=== PATIENT | female | born 1930 | race Caucasian/White ===

== ENCOUNTER 2017-01-02 12:07 | Emergency (ER) | payer OTHER ==
[~2017-01-02 12:07] MED LIST: ACETAMINOPHEN PO; ALBUTEROL17 GM INH; AMBIEN PO; ASPIRIN PO; ASPIRIN81 M1 PO; ASPIRIN81 M2 PO; B-COMPLEX1 TAB PO; CERTAGEN PO; CLARITIN10 MG PO; DEXILANT30 MG PO; EFFEXOR PO; EFFEXOR XR PO; EFFEXOR XR150 MG PO; ESTRACE PO; FEOSOL PO; FIBER GUMMIES2.5 GM PO; FIBER625 M1 PO; FISH OIL 1,0001 CA2 PO; FISH OIL 1,0001 CAP PO; FISH OIL500 MG PO; FLAGYL PO; FLEXERIL10 M1 PO; FOLIC ACID PO; IMDUR ER PO; IMMODIUM1 MG/5 M1 PO; INDOMETHACIN25 MG PO; LEVAQUIN PO; MEDROL DOSEPAK4 MG PO; MULTI-VITAMIN1 EAC1 PO; MULTIVITAMIN1 UDCAP PO; NEURONTIN PO; NEURONTIN600 MG PO; NITROGLYCERIN; PHARMACY; PLAVIX PO; PRILOSEC PO; PRILOSEC20 M1 PO; PRILOSEC20 MG PO; ROBITUSSIN-DM120 ML PO; SINGULAIR PO; SPIRIVA18 MCG INH; TAGAMET PO; TUSSIONEX PENN473 ML PO; VENLAFAXINE HC150 M1 PO; VITAMIN D-32000 UNI1 PO; VITAMIN D1000 UNI1 PO; WOMEN'S DAILY1 EACH PO; ZESTORETIC PO; ZETIA PO; ZOFRAN PO; [UNRECOGNIZED DRUG - OTHER] PO
[2017-01-02 13:20] LABS: BASOPHIL# 0.1 X10e3 (0-0.3); BASOPHIL% 0.7 % (0-2.5); EOSINOPHIL# 0.1 X10e3 (0-0.7); EOSINOPHIL% 1.1 % (0.0-7.0); HEMATOCRIT 38.1 % (35.0-45.0); HEMOGLOBIN 12.7 gm/dL (12.0-16.0); LYMPHOCYTE% 27.7 % (17.0-45.0); MEAN CELL VOLUME 89.1 FL (83-96); MEAN CORPUSCULAR HEMOGLOBIN 29.7 PG (28-34); MEAN CORPUSCULAR HGB CONC 33.4 g/dL (30-36); MEAN PLATELET VOLUME 7.3 FL (6.5-11.5); MONOCYTE# 0.5 X10e3 (0-1.0); MONOCYTE% 6.5 % (3.0-12.0); NEUTROPHIL# 4.7 X10e3 (1.5-7.1); PLATELET COUNT 237 X10e3 (140-420); RED BLOOD COUNT 4.27 X10e (3.90-5.30); RED CELL DISTRIBUTION WIDTH 13.8 % (11.0-15.5); WHITE BLOOD COUNT 7.4 X10e3 (4.0-10.5)
[2017-01-02 13:35] LABS: DIFF IND NO
[2017-01-02 13:45] LABS: ALBUMIN SERUM 4.1 g/dL (3.5-5.0); BILIRUBIN, DIRECT 0.1 mg/dL (0.0-0.2); BILIRUBIN,INDIRECT 0.7 mg/dL (0.0-0.9); BILIRUBIN,TOTAL 0.8 mg/dL (0.2-2.0); BUN/CREATININE RATIO 18.88; CREATININE SERUM 0.9 mg/dL (0.6-1.4); GLOM FILT RATE Estimated 58.3 mL/min (>60); POTASSIUM 3.7 mmol/L (3.5-5.1)
[2017-01-02 14:17] LABS: URINE SOURCE CLEAN CATCH
[2017-01-02 14:26] LABS: URINE APPEARANCE CLEAR; URINE BILIRUBIN NEG (NEG); URINE BLOOD TRACE (NEG); URINE COLOR YELLOW; URINE GLUCOSE NEG (NEG); URINE KETONE NEG (NEG); URINE LEUKOCYTE ESTERASE NEG (NEG); URINE NITRATE NEG (NEG); URINE PROTEIN NEG (NEG); URINE SPECIFIC GRAVITY 1.007 (1.003-1.035); URINE UROBILINOGEN 0.2 MG/DL (NEG)
[2017-01-02 14:29] LABS: URBCS1 AUWI 0-2 /[HPF] (0-2); URINE BACTERIA AUWI NEG (NEGATIVE); URINE SQUAMOUS EPITHELIAL CELL NONE SEEN /[HPF]; UWBCS1 AUWI 0-2 (0-5)
[2017-01-02 14:35] LABS: CULTURE INDICATED? NO
== END 2017-01-02 15:37 | disposition home or self-care (01) ==
LOC: CED 12:07
PROVIDERS: Emergency Medicine
DX: R10.11 Right upper quadrant pain (principal); R10.12 Left upper quadrant pain; R19.7 Diarrhea, unspecified; R11.0 Nausea; K57.92 Diverticulitis of intestine, part unspecified, without perforation or abscess without bleeding; K21.9 Gastro-esophageal reflux disease without esophagitis; I10 Essential (primary) hypertension; K58.9 Irritable bowel syndrome, unspecified; G62.9 Polyneuropathy, unspecified; M79.7 Fibromyalgia; Z90.49 Acquired absence of other specified parts of digestive tract; Z90.710 Acquired absence of both cervix and uterus
CPT/HCPCS: 36415; 80048; 80076; 81003; 82150; 83690; 85025; 96374; 99284; J1170; J2270; J2405

== ENCOUNTER 2017-01-03 03:36 | Inpatient (IN) | payer OTHER ==
--- NOTE | ~2017-01-03 | DS ---
Unit #: [id number] #: [id number] Patient: SMILEY ALEJANDRO [id number] [place], [place] [address] [id number] I MR#: [id number] NAME: SMILEY ALEJANDRO. ROOM: [facility] Age: 86 Sex: F Admission Date: 01/03/2017 : 1930 Discharge Date: 01/04/2017 Attending Physician: Rahul Martínez M.D. Primary Care Physician: Pj Kimball M.D. DISCHARGE SUMMARY PRINCIPAL DISCHARGE DIAGNOSES 1. Acute gastroenteritis. 2. History of transient ischemic attack. 3. Peripheral neuropathy. 4. Fibromyalgia syndrome. 5. Irritable bowel syndrome. 6. Osteoarthritis. 7. Gastroesophageal reflux disease. 8. Chronic kidney disease stage 3. 9. Status post appendectomy. 10. Status post cholecystectomy. 11. Status post hysterectomy. PROCEDURES None. CONSULTANTS Dr. Carcamo from [facility]. REASON FOR HOSPITALIZATION The patient is an 86-year-old white female with a history of hypertension in the past, chronic kidney disease, TIA, peripheral neuropathy, fibromyalgia syndrome, irritable bowel syndrome, osteoarthritis, GE reflux disease, prior appendectomy, cholecystectomy, hysterectomy. She was seen in the emergency room on 01/02/17 with nausea, vomiting and diarrhea after eating clams about three days previously at a local restaurant. At that time, she had normal vital signs, was afebrile. Blood work was normal and she was discharged home only to re-present the following day with worsening symptoms. At that time, she had repeat labs that were normal including a CT scan of the abdomen and pelvis that showed no active disease. She was afebrile. White count was normal. LFTs were normal and she was admitted. HOSPITAL COURSE She was started on IV fluids. She was made NPO except for ice chips, placed on IV proton pump inhibitors, Lovenox for DVT prophylaxis. The patient's diarrhea completely resolved. Her nausea and vomiting improved rapidly. Lactic acid was normal. CBC was again normal. Urinalysis within normal limits. BMP was normal except for GFR of 58. Magnesium was normal as well. Cardiac enzymes were normal. LFTs were normal. Lipase was normal. Amylase was slightly elevated at 63. Dr. Carcamo saw the patient and recommended a high fiber diet and stool softeners regularly. Continue proton pump inhibitor and the patient's diet was advanced. Unit #: [id number] #: [id number] Patient: SMILEY ALEJANDRO Apparently, she tolerated it well and was discharged home in my absence, to follow up with Dr. Kimball in one week. She was, again, discharged on: 1. MiraLAX 17 g daily. 2. A low residue diet. 3. Gabapentin 600 mg p.o. q. h.s. 4. Fiber 625 mg daily. 5. Zofran 4 mg p.o. q.4 hours p.r.n. 6. Multivitamins, one daily. 7. Prilosec, two tabs daily. 8. Venlafaxine 150 mg daily. Dictated by... Rahul Martínez M.D. YESSI/miek TD: 01/06/2017 07:53 JOB #: [id number] DISCHARGE SUMMARY Page 1 of 1 X Rahul Martínez MD X DISCHARGE SUMMARY
--- NOTE | ~2017-01-03 | HP ---
Unit #: [id number] #: [id number] Patient: SMILEY ALEJANDRO [id number] [address] [address] [id number] I MR#: [id number] NAME: SMILEY ALEJANDRO. ROOM: 19412 Age: 86 Sex: F Admission Date: 01/03/2017 : 1930 Attending Physician: Rahul Martínez M.D. Primary Care Physician: Pj Kimball M.D. HISTORY AND PHYSICAL HISTORY OF PRESENT ILLNESS 86-year-old white female with a history of hypertension, chronic kidney disease, TIA, peripheral neuropathy, fibromyalgia syndrome, irritable bowel syndrome, osteoarthritis, GE reflux disease, status post prior appendectomy, cholecystectomy and hysterectomy, seen yesterday with nausea, vomiting and diarrhea for about a three day period after eating clams at a local restaurant. She had a negative workup, was discharged home only to re-present to the emergency room today with worsening symptoms. Repeat labs were fairly unremarkable except for a slightly worsening GFR. CT scan of the abdomen and pelvis showed no active disease. White count was normal. She was afebrile and she was admitted for further evaluation. ALLERGIES She has stated allergies to multiple medications which she is very vague about. The only ones listed in the chart are iodine and Zocor. MEDICATIONS Medications prior to admission: 1. Venlafaxine 150 mg daily. 2. Neurontin 600 mg q. h.s. 3. Multivitamins, one daily. 4. Fiber daily. 5. Prilosec two tabs daily. 6. Zofran 4 mg p.o. q.4 hours p.r.n. PAST SURGICAL HISTORY 1. Cholecystectomy. 2. Hysterectomy. 3. Appendectomy. 4. Breast cyst. 5. Rib resection. 6. Bone spur resection. PAST MEDICAL HISTORY 1. Diverticulosis. 2. Generalized anxiety disorder. 3. Heart murmur. 4. Chronic bronchitis. 5. Irritable bowel syndrome. 6. Fibromyalgia syndrome. 7. Peripheral neuropathy. 8. Osteoarthritis. 9. GE reflux disease. Unit #: [id number] #: [id number] Patient: SMILEY ALEJANDRO 10. History of hypertension. 11. TIA. 12. Chronic kidney disease stage 2. SOCIAL HISTORY Nonsmoker, nondrinker. No street drug use. FAMILY HISTORY Noncontributory. PHYSICAL EXAMINATION VITAL SIGNS: Afebrile. Pulse 82, respirations 16, blood pressure was normal but the last time it was checked it was 160/116. Her O2 sats have been fine. The last one documented in the chart was 89%. Currently she is on 2 L at 96%. HEENT: Unremarkable except for dry mucous membranes. NECK: Supple without JVD, bruits, adenopathy or thyromegaly. CHEST: Clear to auscultation. HEART: Regular rate and rhythm without any S3 gallop. She does have a soft systolic murmur best heard at the apex. ABDOMEN: Large, soft, nondistended, nontender with positive bowel sounds and no hepatosplenomegaly. EXTREMITIES: No clubbing, cyanosis or edema. /RECTAL: Deferred. NEUROLOGICAL: Grossly intact. DIAGNOSTIC STUDIES LABORATORY: CBC normal. Cardiac enzymes normal. Urinalysis normal. Lactic acid normal. Lipase normal. CMP normal except for random blood sugar of 119 and GFR of 45.8, calcium at 10.4. IMAGING: CT scan of the abdomen and pelvis reportedly shows no active disease although there is no official report. IMPRESSION 1. Recurrent episodes of nausea, vomiting and diarrhea with unclear etiology. 2. Gastroesophageal reflux disease. 3. Chronic kidney disease. 4. Peripheral neuropathy. 5. History of transient ischemic attack. 6. History of hypertension. 7. Fibromyalgia syndrome. 8. Status post appendectomy. 9. Status post hysterectomy. 10. Status post cholecystectomy. PLAN NPO except for ice chips, IV fluids, IV Zofran, IV proton pump inhibitors. Lovenox for DVT prophylaxis. Observe over the next 24 hours. If no improvement, consult GI for endoscopy. Otherwise, advance as tolerated. Unit #: [id number] #: [id number] Patient: SMILEY ALEJANDRO Dictated by Nathaniel Sewell/mike TD: 01/03/2017 09:48 JOB #: [id number] HISTORY AND PHYSICAL Page 1 of 1 X Rahul Martínez MD X HISTORY AND PHYSICAL
--- NOTE | ~2017-01-03 | CO ---
Unit #: [id number] #: [id number] Patient: SMILEY ALEJANDRO [id number] [facility]. [place], [place] [address] [id number] I MR#: [id number] NAME: SMILEY ALEJANDRO. ROOM: [facility] Age: 86 Sex: F Admission Date: 01/03/2017 : 1930 Attending Physician: Rahul Martínez M.D. Primary Care Physician: Pj Kimball M.D. Consultation Date: 01/04/2017 CONSULTATION REPORT PRIMARY CARE PHYSICIAN Dr. Pj Kimball. REASON FOR CONSULTATION Abdominal pain. HISTORY OF PRESENTING ILLNESS Ms. Mariscal is an 86-year-old lady with multiple medical problems. She has been having lower abdominal pain for 3 days. It was associated with some nausea, vomiting, and also had a loose stools. No blood in the stool. No fever. No chills. No new medications. Of note, the patient says she had a bowel movement this morning and her pain has nearly resolved. ALLERGIES Multiple medications, list reviewed. MEDICATIONS Medications at home included venlafaxine, Neurontin, multivitamin, Prilosec, and Zofran. PAST MEDICAL HISTORY Significant for GERD; esophageal ring; colonoscopy with Dr. Villa 3 years ago, negative apparently; history of diverticulosis; history of fibromyalgia. SOCIAL HISTORY Nonsmoker. Nonalcoholic. Lives with family. FAMILY HISTORY Noncontributory. REVIEW OF SYSTEMS Negative other than as mentioned above. PHYSICAL EXAMINATION VITAL SIGNS: Stable. Afebrile. GENERAL: No acute distress. HEENT: Pupils are equal and reactive. Sclerae anicteric. Oral mucosa moist. NECK: No JVD. No lymphadenopathy. CHEST: Clear to auscultation bilaterally. CARDIOVASCULAR: Regular rate and rhythm. No murmurs. Unit #: [id number] #: [id number] Patient: SMILEY ALEJANDRO ABDOMEN: Soft, nontender, and nondistended. EXTREMITIES: Without clubbing, cyanosis, or edema. NEUROLOGIC: Intact. SKIN: Warm and dry. DIAGNOSTIC STUDIES LABORATORY RESULTS: Chemistries are unremarkable. Normal lipase. Normal LFTs. Normal renal function. CBC completely normal. IMAGING STUDIES: CT scan shows no acute disease. ASSESSMENT AND PLAN The patient presented with acute nausea, vomiting, abdominal pain. Symptoms have resolved. It could be related to intestinal colic, possibly related to diet and constipation. I will recommend high-fiber diet and stool softeners regularly. Continue PPI therapy, long-term. 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 The patient is wanting to go home. If she can tolerate food, I will okay with discharge with recommendation to return for any recurrent symptoms. Thank you, Dr. Martínez, for this interesting consult. We will follow along. Dictated by... Nathaniel Long/elliot TD: 01/04/2017 14:06 JOB #: [id number] CONSULTATION REPORT Page 1 of 1 X Maciel Carcamo MD X CONSULTATION REPORT
--- NOTE | ~2017-01-03 | CT4 ---
[facility] A Service of [facility] RADIOLOGY TEXT RESULTS PATIENT: SMILEY ALEJANDRO LOCATION: C4B 460-01 : [birth year] UNIT #: [id number] AGE: [address]: Rahul Martínez MD SEX: F ORDER DR: [id number] [facility] [address] [place], [place] [address] [id number] I MR#: [id number] Acc #: [id number] NAME: SMILEY ALEJANDRO. : 1930 SEX: F STUDY DATE/TIME: 01/03/2017 05:13 UNIT: C4B ROOM: [facility] STUDY DESCRIPTION: CT Abd and Pelv Wo Cont Attending Physician: Rahul Martínez M.D. Ordering Physician: Chivo Rico D.O. Primary Care Physician: Pj Kimball M.D. MEDICAL IMAGING REPORT This report is preliminary unless electronic signature is present EXAM CT abdomen and pelvis 01/03/2017 0513 hours INDICATION Nausea, vomiting and diarrhea with generalized abdominal pain that started today. TECHNIQUE Axial images were obtained through the abdomen and pelvis without contrast. Multiplanar reformats were obtained. Comparison made 11/18/2015. This CT examination was performed with one or more of the following radiation dose reduction techniques: automatic exposure control, adjustment of mA and/or kV according to patient size, and iterative reconstruction. FINDINGS ABDOMEN: Lung bases are clear. Aortic valvular calcifications may indicate aortic stenosis. Gallbladder surgically absent. Redemonstrated is a large left upper pole renal cyst. It does not appear significantly changed. No renal or ureteral stones are seen. There is no hydronephrosis. The unenhanced solid organs are otherwise normal. There is atherosclerotic disease, but there is no aortic aneurysm. There is no free fluid or definitive adenopathy. The unopacified GI tract is grossly normal. PELVIS: Urinary bladder is normal. There are no lower ureteral stones. The uterus is surgically absent. There is diffuse sigmoid diverticulosis and descending colon diverticulosis. No definitive evidence of diverticulitis. There is no free fluid. Again noted are bilateral L5 pars defects with grade 1 spondylolisthesis of L5 on S1. IMPRESSION 1. No clearly acute findings in the abdomen or pelvis. [facility] A Service of [facility] RADIOLOGY TEXT RESULTS PATIENT: SMILEY ALEJANDRO LOCATION: [facility] 460-01 : 31 UNIT #: [id number] AGE: [address]: Rahul Martínez MD SEX: F ORDER DR: 2. There is colonic diverticulosis, predominantly in the sigmoid. No definitive evidence for acute diverticulitis however. No bowel obstruction. 3. Cholecystectomy and hysterectomy. 4. Stable large left renal cyst. 5. Calcifications in the aortic valve could indicate aortic stenosis. Dictated by... Pj Muro Jr., M.D. THIS IS AN ELECTRONICALLY VERIFIED REPORT Pj Muro Jr., M.D. at 01/03/2017 9:14 PM VIKTOR/aaliyah TD: 01/03/2017 13:22 JOB #: [id number] MEDICAL IMAGING REPORT Page 1 of 1 COPY
[2017-01-03 06:26] LABS: POC - TROPONIN <0.05 ng/mL (<=0.05)
[2017-01-03 06:28] LABS: BASOPHIL% 0.4 % (0-2.5); EOSINOPHIL% 0.5 % (0.0-7.0); HEMATOCRIT 37.1 % (35.0-45.0); HEMOGLOBIN 12.4 gm/dL (12.0-16.0); LYMPHOCYTE# 2.1 X10e3 (1.0-3.5); LYMPHOCYTE% 29.2 % (17.0-45.0); MEAN CELL VOLUME 89.6 FL (83-96); MEAN CORPUSCULAR HEMOGLOBIN 29.9 PG (28-34); MEAN CORPUSCULAR HGB CONC 33.4 g/dL (30-36); MEAN PLATELET VOLUME 7.5 FL (6.5-11.5); MONOCYTE# 0.4 X10e3 (0-1.0); MONOCYTE% 6.1 % (3.0-12.0); NEUTROPHIL# 4.7 X10e3 (1.5-7.1); NEUTROPHIL% 63.8 % (40-75); PLATELET COUNT 233 X10e3 (140-420); RED BLOOD COUNT 4.15 X10e (3.90-5.30); RED CELL DISTRIBUTION WIDTH 14.2 % (11.0-15.5); WHITE BLOOD COUNT 7.3 X10e3 (4.0-10.5)
[2017-01-03 06:29] LABS: DIFF IND NO
[2017-01-03 06:59] LABS: ALBUMIN SERUM 4.1 g/dL (3.5-5.0); BILIRUBIN, DIRECT 0.1 mg/dL (0.0-0.2); BILIRUBIN,INDIRECT 0.8 mg/dL (0.0-0.9); BILIRUBIN,TOTAL 0.9 mg/dL (0.2-2.0); BUN/CREATININE RATIO 12.72; CALCIUM SERUM 10.4 mg/dL (8.4-10.2); CREATININE SERUM 1.1 mg/dL (0.6-1.4); GLOM FILT RATE Estimated 45.8 mL/min (>60); POTASSIUM 3.6 mmol/L (3.5-5.1); PROTEIN TOTAL SERUM 7.8 g/dL (6.0-8.3)
[2017-01-03 10:28] LABS: URINE SOURCE CLEAN CATCH
[2017-01-03 11:06] LABS: URBCS1 AUWI 0-2 /[HPF] (0-2); URINE APPEARANCE CLEAR; URINE BACTERIA AUWI NEG (NEGATIVE); URINE BILIRUBIN NEG (NEG); URINE BLOOD NEG (NEG); URINE COLOR YELLOW; URINE GLUCOSE NEG (NEG); URINE KETONE NEG (NEG); URINE LEUKOCYTE ESTERASE TRACE (NEG); URINE NITRATE NEG (NEG); URINE PH 6.5 (5-8); URINE PROTEIN TRACE (NEG); URINE SPECIFIC GRAVITY 1.013 (1.003-1.035); URINE SQUAMOUS EPITHELIAL CELL NONE SEEN /[HPF]; URINE UROBILINOGEN 0.2 MG/DL (NEG)
[2017-01-03 11:08] LABS: CULTURE INDICATED? NO
[2017-01-04 10:09] LABS: HEMATOCRIT 37.3 % (35.0-45.0); HEMOGLOBIN 12.3 gm/dL (12.0-16.0); MEAN CELL VOLUME 90.6 FL (83-96); MEAN CORPUSCULAR HEMOGLOBIN 29.8 PG (28-34); MEAN CORPUSCULAR HGB CONC 32.8 g/dL (30-36); MEAN PLATELET VOLUME 7.6 FL (6.5-11.5); RED BLOOD COUNT 4.12 X10e (3.90-5.30); RED CELL DISTRIBUTION WIDTH 13.9 % (11.0-15.5); WHITE BLOOD COUNT 8.3 X10e3 (4.0-10.5)
[2017-01-04 10:34] LABS: BUN/CREATININE RATIO 8.88; CALCIUM SERUM 9.4 mg/dL (8.4-10.2); CREATININE SERUM 0.9 mg/dL (0.6-1.4); GLOM FILT RATE Estimated 58.3 mL/min (>60); MAGNESIUM 1.7 mg/dL (1.6-3.0); POTASSIUM 3.6 mmol/L (3.5-5.1)
[2017-01-04] MEDS ORDERED: MIRALAX17 GM PO (18:30)
== END 2017-01-04 18:50 | disposition home or self-care (01) | DRG 392 ==
LOC: CED 03:36 → CEDOF 07:50 → CED 08:27 → CEDOF 08:27 → C4B 11:50 → CEDOF 11:50 → C4B 01-04 18:50
PROVIDERS: Emergency Medicine; Internal Medicine; Student in an Organized Health Care Education/Training Program
DX: K52.9 Noninfective gastroenteritis and colitis, unspecified (principal); G62.9 Polyneuropathy, unspecified; N18.3 Chronic kidney disease, stage 3 (moderate); Z86.73 Personal history of transient ischemic attack (TIA), and cerebral infarction without residual deficits; M79.7 Fibromyalgia; M19.90 Unspecified osteoarthritis, unspecified site; K21.9 Gastro-esophageal reflux disease without esophagitis; I12.9 Hypertensive chronic kidney disease with stage 1 through stage 4 chronic kidney disease, or unspecified chronic kidney disease; F41.9 Anxiety disorder, unspecified; Z90.49 Acquired absence of other specified parts of digestive tract; Z90.710 Acquired absence of both cervix and uterus
CPT/HCPCS: 36415; 74176; 80048; 80076; 81003; 82553; 83605; 83690; 83735; 84484; 85025; 85027; 96361; 96374; 96375; 99285; C9113; J1170; J1650; J2405; J2550

== ENCOUNTER 2017-01-05 10:54 | Emergency (ER) | payer OTHER ==
[~2017-01-05 10:54] MED LIST changes: +MIRALAX17 GM PO
[2017-01-05 11:26] LABS: BASOPHIL# 0.1 X10e3 (0-0.3); BASOPHIL% 0.7 % (0-2.5); DIFF IND NO; EOSINOPHIL% 0.4 % (0.0-7.0); HEMATOCRIT 39.1 % (35.0-45.0); HEMOGLOBIN 13.2 gm/dL (12.0-16.0); LYMPHOCYTE# 2.2 X10e3 (1.0-3.5); LYMPHOCYTE% 23.8 % (17.0-45.0); MEAN CELL VOLUME 88.7 FL (83-96); MEAN CORPUSCULAR HEMOGLOBIN 29.9 PG (28-34); MEAN CORPUSCULAR HGB CONC 33.7 g/dL (30-36); MONOCYTE% 10.5 % (3.0-12.0); NEUTROPHIL% 64.6 % (40-75); PLATELET COUNT 231 X10e3 (140-420); RED CELL DISTRIBUTION WIDTH 13.8 % (11.0-15.5); WHITE BLOOD COUNT 9.3 X10e3 (4.0-10.5)
[2017-01-05 12:05] LABS: ALBUMIN SERUM 4.2 g/dL (3.5-5.0); BILIRUBIN, DIRECT 0.1 mg/dL (0.0-0.2); BILIRUBIN,INDIRECT 0.5 mg/dL (0.0-0.9); BILIRUBIN,TOTAL 0.6 mg/dL (0.2-2.0); CALCIUM SERUM 10.2 mg/dL (8.4-10.2); GLOM FILT RATE Estimated 51.4 mL/min (>60); POTASSIUM 3.4 mmol/L (3.5-5.1); PROTEIN TOTAL SERUM 8.3 g/dL (6.0-8.3)
[2017-01-05 13:36] LABS: URINE SOURCE CLEAN CATCH
[2017-01-05 13:48] LABS: URINE APPEARANCE CLEAR; URINE BLOOD TRACE (NEG); URINE COLOR DK YELLOW; URINE GLUCOSE NEG (NEG); URINE KETONE TRACE (NEG); URINE LEUKOCYTE ESTERASE 1+ (NEG); URINE NITRATE NEG (NEG); URINE PH 5.5 (5-8); URINE PROTEIN 3+ (NEG); URINE SPECIFIC GRAVITY 1.033 (1.003-1.035)
[2017-01-05 13:51] LABS: CULTURE INDICATED? YES; URINE BACTERIA AUWI NEG (NEGATIVE); URINE SQUAMOUS EPITHELIAL CELL OCC /[HPF]
== END 2017-01-05 15:15 | disposition home or self-care (01) ==
LOC: CED 10:54
DX: R10.9 Unspecified abdominal pain (principal); I10 Essential (primary) hypertension; Z91.041 Radiographic dye allergy status; Z88.8 Allergy status to other drugs, medicaments and biological substances
CPT/HCPCS: 36415; 80048; 80076; 81003; 83690; 85025; 87086; 99284; J0500

== ENCOUNTER → 2017-04-14 | Outpatient (CLI) | payer OTHER ==
--- NOTE | ~2017-04-14 | CR265 ---
[facility] A Service of [facility] RADIOLOGY TEXT RESULTS PATIENT: SMILEY ALEJANDRO LOCATION: [facility] : 31 UNIT #: [id number] AGE: [address]: Elie Villa MD SEX: F ORDER DR: [id number] [facility] [address] [place], [place] [address] [id number] MR#: [id number] Acc #: [id number] NAME: SMILEY ALEJANDRO. : 1930 SEX: F STUDY DATE/TIME: 04/14/2017 11:15 UNIT: [facility] ROOM: STUDY DESCRIPTION: CR Upper GI Series Wo KUB Attending Physician: Elie Villa M.D. Referring Physician: Elie Villa M.D. Ordering Physician: Elie Villa M.D. Primary Care Physician: Pj Kimball M.D. MEDICAL IMAGING REPORT This report is preliminary unless electronic signature is present EXAM Upper GI series INDICATIONS An 87-year-old female with dyspnea. She states that she has had this problem for 30 years and it is somewhat worse now. Fills like things are getting stuck in her throat. Fluoroscopy time was 2.8 minutes. 47 fluoroscopic images were taken. FINDINGS Evaluation of the cervical esophagus demonstrates normal swallowing mechanism. Evaluation of thoracic esophagus shows multiple tertiary contractions within the mid and lower esophagus. There is no evidence for stricture. No evidence for hiatal hernia. Evaluation of the stomach demonstrates a normal fold pattern. Evaluation of the duodenal sweep demonstrates a normal appearing duodenum. There has been a prior cholecystectomy. IMPRESSION Multiple line tertiary contractions within the mid and lower esophagus suggesting esophageal dysmotility. Dictated by... Jagjit Garcia M.D. THIS IS AN ELECTRONICALLY VERIFIED REPORT [facility] A Service of [facility] RADIOLOGY TEXT RESULTS PATIENT: SMILEY ALEJANDRO LOCATION: [facility] : 31 UNIT #: [id number] AGE: [address]: Elie Villa MD SEX: F ORDER DR: Jagjit Garcia M.D. at 04/15/2017 7:34 AM PAULETTE/luigi TD: 04/15/2017 04:18 JOB #: [id number] MEDICAL IMAGING REPORT Page 1 of 1 COPY
== END | disposition home or self-care (01) ==
LOC: CRAD 09:58
DX: R13.19 Other dysphagia (principal)
CPT/HCPCS: 74240